=== PATIENT | female | born 1960 | race Hispanic/Latino ===

== ENCOUNTER 2023-04-22 12:55 | Inpatient (IN) | payer SELFPAY ==
[2023-04-22] MEDS ORDERED: Iopamidol 370 76% 100 ML VIAL ONE (13:46)
[2023-04-22] MEDS ORDERED: Aspirin 81 mg Enteric Coated Tablet ONE (15:07)
[2023-04-22] MEDS ORDERED: Nitroglycerin 0.4 MG TAB (25 Tab Bottle) ONE (15:07)
[2023-04-22 15:41] LABS: ALT (SGPT) 17 U/L (8-55); AST (SGOT) 18 U/L (5-34); Albumin 4.3 g/dL (3.4-4.8); Alkaline Phosphatase 120 U/L (40-110); Anion Gap 14 mmol/L (10-20); BUN (Urea Nitrogen) 12 mg/dL (9.8-20.1); Bilirubin, Total 0.3 mg/dL (0.2-1.2); Calc. Creatinine Clearance 0 mL/min (70-130); Calcium 9.6 mg/dL (7.8-10.44); Carbon Dioxide 26 mmol/L (23-31); Chloride 101 mmol/L (98-107); Estimated GFR 82; Glucose 149 mg/dL (80-115); Lipase 28 U/L (8-78); Magnesium 1.9 mg/dL (1.6-2.6); Potassium 3.3 mmol/L (3.5-5.1); Protein, Total 7.3 g/dL (5.8-8.1); Sodium 138 mmol/L (136-145)
[2023-04-22 15:42] LABS: Troponin I 0.021 ng/mL (< 0.028)
[2023-04-22 15:46] LABS: Hematocrit 42.6 % (34.9-44.5); Hemoglobin 14.1 g/dL (12.0-15.5); Mean Corpuscular HGB CONC 33.1 g/dL (32.0-36.0); Mean Corpuscular Hemoglobin 26.6 pg (27.0-33.0); Mean Corpuscular Volume 80.2 fl (81.6-98.3); Platelet Count 230 10x3/uL (150-450); RBC Distribution Width 11.9 % (11.5-14.5); Red Blood Cell (RBC) Count 5.31 10x6/uL (3.90-5.03); White Blood Cell (WBC) Count 6.5 10x3/uL (3.5-10.5)
[2023-04-22 16:33] LABS: Eosinophils 29 % (0-10); Lymphocytes 43 % (21-51); Monocytes 2 % (0-10); Reactive Lymphocytes 15 % (0-10)
[2023-04-22 16:34] LABS: Neutrophil 11 % (42-75)
[2023-04-22 16:35] LABS: MDiff Complete? YES; Platelet Adequacy Comment Appears Adequate; RBC Morph Comment Within Normal Limits
[2023-04-22] MEDS ORDERED: Nitroglycerin 50 MG/250 ML BOT 250 ML ONE (16:42)
[2023-04-22] MEDS ORDERED: Potassium Chloride 20 MEQ TAB ONE (16:43)
[2023-04-22 18:18] LABS: Troponin I 0.016 ng/mL (< 0.028)
[2023-04-22] MEDS ORDERED: Dextrose 50% Abboject 50 ML SYRINGE SLOW IVP PRN (18:32)
[2023-04-22] MEDS ORDERED: HumaLOG 300 UNITS/3 ML VIAL SC PRN (18:32)
[2023-04-22] MEDS ORDERED: Glucagon 1 MG/ML KIT IM PRN (18:32)
[2023-04-22] MEDS ORDERED: Dextrose 5% in Water 1,000 ML IV PRN (18:32)
[2023-04-22] MEDS ORDERED: Acetaminophen 325 MG TAB PO PRN (18:32)
[2023-04-22] MEDS ORDERED: Ventolin HFA Inhaler 60 PUFF INHALER INH PRN (18:34)
[2023-04-22 20:33] VITALS: BMI 31.4
[2023-04-22] MEDS ORDERED: Atorvastatin Calcium 40 MG TAB PO SCH (21:00)
[2023-04-22] MEDS ORDERED: Nitroglycerin 50 MG/250 ML BOT 250 ML IVPB SCH (21:00)
[2023-04-22] MEDS: Lisinopril 20 MG TAB PO SCH (21:08)
[2023-04-22 22:18] LABS: Troponin I 0.015 ng/mL (< 0.028)
[2023-04-23 04:17] LABS: Anion Gap 18 mmol/L (10-20); BUN (Urea Nitrogen) 15 mg/dL (9.8-20.1); Calc. Creatinine Clearance 72 mL/min (70-130); Calcium 9.3 mg/dL (7.8-10.44); Carbon Dioxide 22 mmol/L (23-31); Chloride 104 mmol/L (98-107); Estimated GFR 79; Glucose 143 mg/dL (80-115); Sodium 140 mmol/L (136-145)
[2023-04-23 04:28] LABS: #Basophils 0.1 10x3/uL (0.0-0.2); #Eosinphils 1.8 10x3/uL (0.0-0.5); #Monocytes 0.6 10x3/uL (0.0-1.1); #Neutrophils 6.7 10x3/uL (1.5-8.4); %Basophils 0.7 % (0.0-2.0); %Eosinophils 17.1 % (0.0-6.0); %Monocytes 5.7 % (0.0-10.0); %Neutrophils 63.2 % (40.0-75.0); Hematocrit 39.9 % (34.9-44.5); Hemoglobin 13.3 g/dL (12.0-15.5); Mean Corpuscular HGB CONC 33.3 g/dL (32.0-36.0); Mean Corpuscular Hemoglobin 26.7 pg (27.0-33.0); Mean Corpuscular Volume 80.1 fl (81.6-98.3); Platelet Count 236 10x3/uL (150-450); Red Blood Cell (RBC) Count 4.98 10x6/uL (3.90-5.03); White Blood Cell (WBC) Count 10.5 10x3/uL (3.5-10.5)
[2023-04-23] MEDS: Lisinopril 20 MG TAB PO SCH (07:48)
[2023-04-23 08:55] VITALS: BP 133/79; TEMP 97.5
[2023-04-23] MEDS ORDERED: Aspirin 81 mg Enteric Coated Tablet PO SCH (09:00)
[2023-04-23] MEDS ORDERED: Non-Formulary Medication 1 EACH (Fluticasone Propion/Salmeterol [Advair Diskus 250/50] 1 E PO PRN (10:28)
[2023-04-23 11:56] LABS: Hemoglobin A1c 8.2 % (4.0-6.0)
[2023-04-24] MEDS ORDERED: Hydrochlorothiazide 25 MG TAB PO SCH (09:00)
== END 2023-04-23 11:10 | disposition home or self-care (01) | DRG 305 ==
LOC: SUATTDRO 12:55 → CSHERS 12:55 → CSHIMCU 20:08
PROVIDERS: ADMIT Family Medicine; ATTEND Family Medicine
DX: I16.1 Hypertensive emergency (principal); I24.8 Other forms of acute ischemic heart disease; R07.9 Chest pain, unspecified; E78.5 Hyperlipidemia, unspecified; I25.2 Old myocardial infarction; E11.9 Type 2 diabetes mellitus without complications; J44.9 Chronic obstructive pulmonary disease, unspecified; I16.0 Hypertensive urgency
CPT/HCPCS: 36416; 70450; 71045; 71275; 80048; 80053; 83036; 83690; 83735; 83880; 84443; 84484; 85025; 93005; 94760; 94762; 96365; 96366; J1650; J1815; Q9967

== ENCOUNTER 2023-06-02 12:00 | Emergency (ER) | payer OTHER, SELFPAY ==
[2023-06-02] MEDS ORDERED: methylPREDNISolone Sod Succ/PF 125 MG/2 ML VIAL ONE (12:21)
[2023-06-02] MEDS ORDERED: Ipratropium/Albuterol 3 ML NEB ONE (12:22)
[2023-06-02 12:42] LABS: Hematocrit 41.6 % (34.9-44.5); Hemoglobin 13.3 g/dL (12.0-15.5); Mean Corpuscular Hemoglobin 26.2 pg (27.0-33.0); Mean Corpuscular Volume 81.9 fl (81.6-98.3); Mean Platelet Volume 9.8 fl (7.4-10.4); Platelet Count 208 10x3/uL (150-450); RBC Distribution Width 12.7 % (11.5-14.5); Red Blood Cell (RBC) Count 5.08 10x6/uL (3.90-5.03); White Blood Cell (WBC) Count 5.4 10x3/uL (3.5-10.5)
[2023-06-02 12:53] LABS: MDiff Complete? YES
[2023-06-02 12:57] LABS: ALT (SGPT) 15 U/L (8-55); AST (SGOT) 17 U/L (5-34); Albumin 4.1 g/dL (3.4-4.8); Alkaline Phosphatase 82 U/L (40-110); Anion Gap 17 mmol/L (10-20); BUN (Urea Nitrogen) 10 mg/dL (9.8-20.1); Bilirubin, Total 0.7 mg/dL (0.2-1.2); Calc. Creatinine Clearance 0 mL/min (70-130); Calcium 8.8 mg/dL (7.8-10.44); Carbon Dioxide 23 mmol/L (23-31); Chloride 102 mmol/L (98-107); Estimated GFR 82; Globulin 2.6 g/dL (2.4-3.5); Glucose 202 mg/dL (80-115); Potassium 3.6 mmol/L (3.5-5.1); Protein, Total 6.7 g/dL (5.8-8.1); Sodium 138 mmol/L (136-145)
[2023-06-02 13:03] LABS: Troponin I Less than 0.010 ng/mL (< 0.028)
[2023-06-02 13:09] LABS: Lymphocytes 30 % (21-51)
[2023-06-02 13:10] LABS: Eosinophils 40 % (0-10); Monocytes 4 % (0-10)
[2023-06-02 13:11] LABS: Neutrophil 26 % (42-75)
[2023-06-02 13:16] LABS: RBC Morph Comment Within Normal Limits
[2023-06-02 13:17] LABS: Platelet Adequacy Comment Appears Adequate
[2023-06-02 13:45] LABS: SARS-CoV-2 NAA Rapid Test Not Detected (NotDetected)
== END 2023-06-02 14:58 | disposition home or self-care (01) ==
LOC: CSHERS 12:00
DX: J45.901 Unspecified asthma with (acute) exacerbation (principal); E11.9 Type 2 diabetes mellitus without complications; I10 Essential (primary) hypertension; J44.9 Chronic obstructive pulmonary disease, unspecified; Z20.822 Contact with and (suspected) exposure to COVID-19
CPT/HCPCS: 36415; 71045; 80053; 83880; 84484; 85025; 93005; 94640; 94760; 96374; J2930; J7620

== ENCOUNTER 2023-07-19 11:54 | Emergency (ER) | payer SELFPAY ==
[2023-07-19] MEDS ORDERED: Ipratropium/Albuterol 3 ML NEB ONE ×3 (12:20→14:00)
[2023-07-19] MEDS ORDERED: methylPREDNISolone Sod Succ/PF 125 MG/2 ML VIAL ONE (12:44)
== END 2023-07-19 14:41 | disposition home or self-care (01) ==
LOC: CSHERS 11:54
DX: J45.901 Unspecified asthma with (acute) exacerbation (principal); I10 Essential (primary) hypertension
CPT/HCPCS: 71046; 94640; 94760; 96372; J2930; J7620

== ENCOUNTER 2023-09-19 17:42 | Emergency (ER) | payer OTHER, SELFPAY ==
[2023-09-19 19:27] LABS: SARS-CoV-2 NAA Rapid Test Not Detected (NotDetected)
== END 2023-09-19 20:20 | disposition home or self-care (01) ==
LOC: CSHERS 17:42
DX: J10.1 Influenza due to other identified influenza virus with other respiratory manifestations (principal); E11.9 Type 2 diabetes mellitus without complications; I10 Essential (primary) hypertension; J44.9 Chronic obstructive pulmonary disease, unspecified
CPT/HCPCS: 99283

== ENCOUNTER 2024-06-21 12:17 | Emergency (ER) | payer OTHER ==
[2024-06-21 13:29] LABS: #Basophils 0.04 10x3/uL (0.0-0.2); #Eosinophils 1.39 10x3/uL (0.0-0.5); #Monocytes 0.28 10x3/uL (0.0-1.1); #Neutrophils 2.28 10x3/uL (1.5-8.4); %Basophils 0.7 % (0.0-2.0); %Lymphocytes 31.1 % (18.0-47.0); %Monocytes 4.8 % (0.0-10.0); %Neutrophils 39.4 % (40.0-75.0); Hematocrit 45.6 % (34.9-44.5); Hemoglobin 14.6 g/dL (12.0-15.5); Mean Corpuscular Hemoglobin 26.5 pg (27.0-33.0); Mean Corpuscular Volume 82.9 fL (81.6-98.3); Mean Platelet Volume 9.4 fL (7.4-10.4); Platelet Count 226 10x3/uL (150-450); RBC Distribution Width 12.5 % (11.5-14.5); White Blood Cell (WBC) Count 5.8 10x3/uL (3.5-10.5)
[2024-06-21] MEDS ORDERED: hydrALAZINE 20 MG/ML VIAL ONE (13:30)
[2024-06-21 13:42] LABS: INR-International Normal Ratio 0.9; PTT 25.9 sec (22.0-33.0); Prothrombin Time 9.8 sec (9.5-12.1)
[2024-06-21 13:44] LABS: ALT (SGPT) 20 U/L (8-55); AST (SGOT) 19 U/L (5-34); Albumin 4.5 g/dL (3.4-4.8); Alkaline Phosphatase 137 U/L (40-110); Anion Gap 16 mmol/L (10-20); BUN (Urea Nitrogen) 17 mg/dL (9.8-20.1); Bilirubin, Total 0.3 mg/dL (0.2-1.2); Calc. Creatinine Clearance 0 mL/min (70-130); Calcium 9.8 mg/dL (7.8-10.44); Carbon Dioxide 26 mmol/L (23-31); Chloride 100 mmol/L (98-107); Estimated GFR 72; Globulin 3.2 g/dL (2.4-3.5); Glucose 126 mg/dL (80-115); Potassium 4.2 mmol/L (3.5-5.1); Protein, Total 7.7 g/dL (5.8-8.1); Sodium 138 mmol/L (136-145)
[2024-06-21 13:49] LABS: Troponin I Less than 0.010 ng/mL (< 0.028)
[2024-06-21] MEDS ORDERED: Acetaminophen 325 MG TAB PO PRN (16:48)
[2024-06-21] MEDS ORDERED: Ondansetron ODT 4 MG TAB PO PRN (16:48)
[2024-06-21] MEDS ORDERED: Insulin Lispro 100 UNIT/ML 10 ML VIAL SC PRN (16:57)
[2024-06-21] MEDS ORDERED: Glucagon 1 MG/ML KIT IM PRN (16:57)
[2024-06-21] MEDS ORDERED: Aspirin Chewable 81 MG TAB ONE (16:57)
[2024-06-21] MEDS ORDERED: Dextrose 50% Abboject 50 ML SYRINGE SLOW IVP PRN (16:57)
[2024-06-21] MEDS ORDERED: Dextrose 5% in Water 1,000 ML IV PRN (16:57)
[2024-06-21 20:24] LABS: Hemoglobin A1c 7.1 % (4.0-6.0)
[2024-06-21] MEDS ORDERED: Famotidine 20 MG TAB PO SCH (21:00)
== END 2024-06-21 18:57 | disposition admitted as inpatient to this hospital (09) ==
LOC: CSHERS 12:17
DX: I63.9 Cerebral infarction, unspecified (principal); I16.1 Hypertensive emergency; E11.9 Type 2 diabetes mellitus without complications; I10 Essential (primary) hypertension; Z79.82 Long term (current) use of aspirin
CPT/HCPCS: 0042T; 36415; 70450; 71045; 80053; 83036; 84484; 85025; 85610; 85730; 86850; 86900; 86901; 93005; 94760; 96374; J0360